=== PATIENT | male | born 1975 | race Caucasian/White ===

== ENCOUNTER 2019-12-18 10:12 | Emergency (ER) | payer SELFPAY ==
[~2019-12-18] VITALS: Ht 170.2 cm; Wt 81.0 kg
[2019-12-18 10:28] VITALS: BP 151/78
[2019-12-18] MEDS ORDERED: IOHEXOL 240 MG/ML 50ML VIAL. ONE (10:43)
[2019-12-18] MEDS ORDERED: ONDANSETRON PF 4 MG/2 ML VIAL. IVP ONE ×2 (10:45→12:15)
[2019-12-18] MEDS ORDERED: FAMOTIDINE 20 MG/2 ML VIAL IVP ONE (10:45)
[2019-12-18] MEDS ORDERED: IV NORMAL SALINE 1,000ML 1,000 ML IV ONE (10:45)
[2019-12-18] MEDS ORDERED: IOHEXOL 300 MG/ML 75 ML VIAL. IV ONE (11:00)
[2019-12-18 11:24] LABS: CALCIUM 9.6 mg/dL (8.5-10.1); CREATININE 1.1 mg/dL (0.7-1.3); GFR 73.4; POTASSIUM 3.8 mmol/L (3.5-5.1)
[2019-12-18 11:36] LABS: BASO # 0.1 x10^3/uL (0.0-0.2); BASO % 1 % (0-3); EOS % 1 % (0-3); HEMATOCRIT 48.3 % (39.0-53.0); HEMOGLOBIN 16.7 g/dL (13.0-17.5); LYMPH % 23 % (24-48); MEAN CORPUSCULAR HEMOGLOBIN 29 pg (25-35); MEAN CORPUSCULAR HGB CONC 35 g/dL (31-37); MEAN CORPUSCULAR VOLUME 85 fL (79-100); MONO # 0.6 x10^3/uL (0.0-1.1); MONO % 7 % (0-9); NEUT # 5.9 x10^3uL (1.8-7.7); NEUT % 69 % (31-73); PLATELET COUNT 329 x10^3/uL (140-400); RED BLOOD COUNT 5.69 x10^6/uL (4.30-5.70); RED CELL DISTRIBUTION WIDTH 13.1 % (11.5-14.5); WHITE BLOOD COUNT 8.6 x10^3/uL (4.0-11.0)
[2019-12-18 11:42] LABS: ALBUMIN 4.4 g/dL (3.4-5.0); ALBUMIN/GLOBULIN RATIO 1.4 (1.0-1.7); MAGNESIUM 2.1 mg/dL (1.8-2.4); TOTAL BILIRUBIN 0.9 mg/dL (0.2-1.0); TOTAL PROTEIN 7.5 g/dL (6.4-8.2)
--- NOTE | 2019-12-18 11:50 | PHYS DOC ---
Past History Past Medical History: Diverticulitis, High Cholesterol Additional Past Medical Histor: Viral meningitis Additional Past Surgical Histo: Dental extractions 12/03/2019 Smoking: Cigarettes Alcohol Use: None Drug Use: Marijuana General Adult EDM: Chief Complaint: NAUSEA/VOMITING/DIARRHEA HPI: HPI: 44 year old male presents with prolonged symptoms. Patient reports has had LLQ abdominal pain, nausea, vomiting, constipation, neck and low back pain, headache, dizziness, and generalized malaise for last few weeks. Reports symptoms seemed to start after patient had 2 teeth extracted on 12/03/2019. Patient has been seen multiple times by his PCP with testing performed. Patient reports he has had a CXR, sinus XR, blood work, and even blood cultures which have not resulted any known abnormality. Patient also reports he was tested for COVID-19 and received a "negative" result. Patient was recently started 2 days ago on Flagyl and Cipro for presumed diverticulitis. Patient reports he has had prior history. Denies imaging of abdomen. Patient also reports history of prior "meningitis" for which he was hospitalized. Denies trauma. Denies known sick contacts. Reports symptoms have not improved and therefore he presents to ED for further evaluation and treatment. Review of Systems: Review of Systems: Constitutional: Denies fever or chills; reports malaise Eyes: Denies change in visual acuity, redness, or eye pain HENT: Denies nasal congestion or sore throat Respiratory: Denies cough or shortness of breath Cardiovascular: Denies chest pain or palpitations GI: Reports abdominal pain, nausea, vomiting, and constipation : Denies dysuria or hematuria Musculoskeletal: Reports neck pain and low back pain Integument: Denies rash or skin lesions Neurologic: Reports headache; denies focal weakness or sensory changes Complete systems were reviewed and found to be within normal limits, except as documented in this note. Current Medications: Current Meds: Current Medications Medications (Trade) Dose Ordered Sig/David Start Time Stop Time Status Last Admin Dose Admin Famotidine (Pepcid Vial) 20 mg 1X ONCE 12/18/19 10:45 12/18/19 10:47 DC 12/18/19 10:57 20 MG Fentanyl Citrate (Fentanyl 2ml Vial) 50 mcg 1X ONCE 12/18/19 10:45 12/18/19 10:47 DC 12/18/19 10:57 50 MCG Iohexol (Omnipaque 240 Mg/ml) 50 ml STK-MED ONCE 12/18/19 10:43 12/18/19 10:44 DC Iohexol (Omnipaque 300 Mg/ml) 75 ml 1X ONCE 12/18/19 11:00 12/18/19 11:01 DC Ondansetron HCl (Zofran) 4 mg 1X ONCE 12/18/19 10:45 12/18/19 10:47 DC 12/18/19 10:57 4 MG Sodium Chloride 1,000 ml @ 1,000 mls/hr 1X ONCE 12/18/19 10:45 12/18/19 11:44 DC 12/18/19 10:56 1,000 MLS/HR Allergies: Allergies: Allergies Coded Allergies Type Severity Reaction Last Updated Verified No Known Drug Allergies 12/18/19 No Physical Exam: PE: Constitutional: Well developed, well nourished, uncomfortable, non-toxic appearance HENT: Normocephalic, atraumatic Eyes: EOMI, PERRL, conjunctiva normal, no discharge Neck: Normal range of motion, no tenderness, supple, no meningeal signs Lungs & Thorax: Equal chest rise and fall, no respiratory distress Abdomen: Soft, LLQ tenderness, mild distention, no guarding Skin: Warm, dry, no erythema, no rash Back: Low lumbar paraspinal tenderness, no CVA tenderness Extremities: No tenderness, ROM intact, no edema Neurologic: Alert and oriented X 3, no motor or sensory deficit noted Psychologic: Affect normal, judgement normal Current Patient Data: Labs: Laboratory Tests Test 12/18/19 10:50 White Blood Count 8.6 x10^3/uL (4.0-11.0) Red Blood Count 5.69 x10^6/uL (4.30-5.70) Hemoglobin 16.7 g/dL (13.0-17.5) Hematocrit 48.3 % (39.0-53.0) Mean Corpuscular Volume 85 fL (79-100) Mean Corpuscular Hemoglobin 29 pg (25-35) Mean Corpuscular Hemoglobin Concent 35 g/dL (31-37) Red Cell Distribution Width 13.1 % (11.5-14.5) Platelet Count 329 x10^3/uL (140-400) Neutrophils (%) (Auto) 69 % (31-73) Lymphocytes (%) (Auto) 23 % (24-48) L Monocytes (%) (Auto) 7 % (0-9) Eosinophils (%) (Auto) 1 % (0-3) Basophils (%) (Auto) 1 % (0-3) Neutrophils # (Auto) 5.9 x10^3uL (1.8-7.7) Lymphocytes # (Auto) 2.0 x10^3/uL (1.0-4.8) Monocytes # (Auto) 0.6 x10^3/uL (0.0-1.1) Eosinophils # (Auto) 0.0 x10^3/uL (0.0-0.7) Basophils # (Auto) 0.1 x10^3/uL (0.0-0.2) Sodium Level 139 mmol/L (136-145) Potassium Level 3.8 mmol/L (3.5-5.1) Chloride Level 98 mmol/L (98-107) Carbon Dioxide Level 31 mmol/L (21-32) Anion Gap 10 (6-14) Blood Urea Nitrogen 16 mg/dL (8-26) Creatinine 1.1 mg/dL (0.7-1.3) Estimated GFR (Cockcroft-Gault) 73.4 BUN/Creatinine Ratio 15 (6-20) Glucose Level 105 mg/dL (70-99) H Lactic Acid Level 1.2 mmol/L (0.4-2.0) Calcium Level 9.6 mg/dL (8.5-10.1) Magnesium Level 2.1 mg/dL (1.8-2.4) Total Bilirubin 0.9 mg/dL (0.2-1.0) Aspartate Amino Transferase (AST) 21 U/L (15-37) Alanine Aminotransferase (ALT) 40 U/L (16-63) Alkaline Phosphatase 66 U/L (46-116) Creatine Kinase 71 U/L (39-308) Creatine Kinase MB (Mass) 0.5 ng/mL (0.0-3.6) Creatine Kinase MB Relative Index 0.7 % (0-4) Troponin I Quantitative < 0.017 ng/mL (0-0.055) Total Protein 7.5 g/dL (6.4-8.2) Albumin 4.4 g/dL (3.4-5.0) Albumin/Globulin Ratio 1.4 (1.0-1.7) Vital Signs: Vital Signs Date Time Temp Pulse Resp B/P (MAP) Pulse Ox O2 Delivery O2 Flow Rate FiO2 12/18/19 10:57 16 99 12/18/19 10:28 97.0 116 151/78 (102) Room Air EKG: EKG: @1044 NSR at 91bpm, NO ST elevation, QRS 88ms, QT/QTc 362/447ms, baseline artifact in III Radiology/Procedures: Radiology/Procedures: PROCEDURE: CT ABD PELV W/ORAL&IV CONTRAST PQRS Compliance Statement: One or more of the following individualized dose reduction techniques were utilized for this examination: 1. Automated exposure control 2. Adjustment of the mA and/or kV according to patient size 3. Use of iterative reconstruction technique CT ABD PELV W/ORAL IV CONTRAST Clinical Indication: LLQ pain. Comparison: None. Technique: Helical CT imaging of the abdomen and pelvis is performed after 75 cc of Omnipaque 300 IV contrast. Oral contrast also administered. Findings: The lung bases are clear. Cardiac size normal. Small cyst segment IVb of the liver. Liver otherwise homogeneous. Gallbladder, spleen, pancreas, adrenal glands, abdominal aorta, and kidneys are normal. Stomach unremarkable. There is small bowel malrotation. The small bowel is positioned in the right abdomen and colon is mostly position in the left abdomen. The cecum is seen in the midline at the level of the kidneys. There is no small bowel obstruction. Small bowel is mostly decompressed. Tiny fat-containing umbilical hernia. The appendix is normal. There is no abdominal adenopathy or free fluid. No colon wall thickening is seen. Urinary bladder is normal. Prostate and seminal vesicles are normal. No pelvic free fluid. There is bilateral L5 spondylolysis. There is mild grade 1 anterolisthesis of L5 on S1. Mild grade 1 retrolisthesis of L4 on L5. IMPRESSION: 1. No acute abdominal or pelvic abnormality. 2. Incidental congenital small bowel malrotation. Electronically signed by: Uriah Zuniga MD (12/18/2019 12:22 PM) [id number] Course & Med Decision Making: Course & Med Decision Making Pertinent Labs and Imaging studies reviewed. (See chart for details) Patient presents with prolonged illness including LLQ abdominal pain, neck and back pain, N/V, constipation, VALADEZ, and dizziness. Patient has been seen and worked up by PCP without significant findings. Reports has previous CXR, sinus XR, blood cultures, and COVID testing by PCP. No significant results reported. PCP started patient on Flagyl and Cipro with concern for possible diverticulitis given history. Patient with continued LLQ pain. Pain and nausea addressed. IVF hydration given. Labs obtained and posted to chart. WBC and lactic acid WNL. UA without signs of infection. CT abd/pelvis with oral and IV contrast without acute process. Unclear etiology. Possible viral syndrome. Patient stable for discharge home with outpatient follow-up with PCP/GI. GI referral provided. Discussed findings and plan with patient, who acknowledges understanding and agreement. Feroz Disclaimer: [employer]IQ Disclaimer: This electronic medical record was generated, in whole or in part, using a voice recognition dictation system. Departure Departure: Impression: Primary Impression: Abdominal pain Qualified Codes: R10.32 - Left lower quadrant pain Additional Impression: Intractable nausea and vomiting Disposition: HOME/RESIDENCE PRIOR TO ADM Condition: STABLE Referrals: ALYCIA DUPONT MD (PCP) FRANDY JAVIER MD Patient Instructions: Abdominal Pain (Nonspecific), Clear Liquid Diet, [id number], Nausea and Vomiting, [id number] Additional Instructions: It does not appear you currently have diverticulitis. You can discontinue previously prescribed antibiotics. Scripts Hyoscyamine Sulfate (LEVSIN-SL) 0.125 Mg Tab.subl 0.125 MG SL Q4-6HRS PRN for PAIN, #20 TAB Prov: LATHA HERNANDEZ DO 12/18/19 Promethazine Hcl (PROMETHAZINE HCL) 25 Mg Supp.rect 25 MG RC Q6HRS PRN for NAUSEA, #10 SUPP.RECT Prov: LATHA HERNANDEZ DO 12/18/19 Ondansetron (ONDANSETRON ODT) 4 Mg Tab.rapdis 1 TAB PO PRN Q6-8HRS PRN for NAUSEA, #16 TAB Prov: LATHA HERNANDEZ DO 12/18/19 Sennosides/Docusate Sodium (Colace 2-in-1 Tablet) 1 Each Tablet 1 TAB PO QHS for constipation, #20 TAB 0 Refills Prov: LATHA HERNANDEZ DO 12/18/19 Famotidine (PEPCID) 20 Mg Tablet 1 TAB PO BID for gastritis, #10 TAB Prov: LATHA HERNANDEZ DO 12/18/19 Justification of Admission: Justification of Admission: Justification of Admission Dx: N/A LATHA HERNANDEZ DO Dec 18, 2019 11:50
[2019-12-18] MEDS ORDERED: MORPHINE SULFATE 4 MG/ML DISP.SYRIN. IV ONE (12:00)
--- NOTE | 2019-12-18 12:24 | RAD ---
PQRS Compliance Statement: One or more of the following individualized dose reduction techniques were utilized for this examination: 1. Automated exposure control 2. Adjustment of the mA and/or kV according to patient size 3. Use of iterative reconstruction technique CT ABD PELV W/ORAL IV CONTRAST Clinical Indication: LLQ pain. Comparison: None. Technique: Helical CT imaging of the abdomen and pelvis is performed after 75 cc of Omnipaque 300 IV contrast. Oral contrast also administered. Findings: The lung bases are clear. Cardiac size normal. Small cyst segment IVb of the liver. Liver otherwise homogeneous. Gallbladder, spleen, pancreas, adrenal glands, abdominal aorta, and kidneys are normal. Stomach unremarkable. There is small bowel malrotation. The small bowel is positioned in the right abdomen and colon is mostly position in the left abdomen. The cecum is seen in the midline at the level of the kidneys. There is no small bowel obstruction. Small bowel is mostly decompressed. Tiny fat-containing umbilical hernia. The appendix is normal. There is no abdominal adenopathy or free fluid. No colon wall thickening is seen. Urinary bladder is normal. Prostate and seminal vesicles are normal. No pelvic free fluid. There is bilateral L5 spondylolysis. There is mild grade 1 anterolisthesis of L5 on S1. Mild grade 1 retrolisthesis of L4 on L5. IMPRESSION: 1. No acute abdominal or pelvic abnormality. 2. Incidental congenital small bowel malrotation. Electronically signed by: Uriah Zuniga MD (12/18/2019 12:22 PM) [id number]
[2019-12-18 12:25] LABS: BACTERIA,URINE 0 /HPF (0-FEW); BILIRUBIN,URINE NEG (NEG); CLARITY,URINE CLEAR; COLOR,URINE YELLOW; GLUCOSE,URINE NEG (NEG); NITRITE,URINE NEG (NEG); RBC,URINE 0 /HPF (0-2); SQUAMOUS EPITHELIAL CELL,UR OCC /LPF; UROBILINOGEN,URINE 0.2 mg/dL (0.2 mg/dL); WBC,URINE 0 /HPF (0-4)
[2019-12-18] MEDS ORDERED: IV NORMAL SALINE 500ML 500 ML IV ONE (12:45)
[2019-12-18] MEDS ORDERED: METOCLOPRAMIDE HCL 10 MG/2 ML VIAL. IVP ONE (12:45)
[2019-12-18] MEDS ORDERED: KETOROLAC 15 MG/ML VIAL. IVP ONE (12:45)
[2019-12-18] MEDS ORDERED: diphenhydrAMINE 50 MG/ML VIAL IVP ONE (12:45)
[2019-12-18] MEDS ORDERED: SENN-121 PO (12:47)
[2019-12-18] MEDS ORDERED: PROM25SU33 RC (12:47)
[2019-12-18] MEDS ORDERED: HYOS0.1265 SL (12:47)
[2019-12-18] MEDS ORDERED: ONDA4TAB12 PO (12:47)
[2019-12-18] MEDS ORDERED: FAMO-63 PO (12:47)
--- NOTE | 2019-12-18 21:26 | EKG ---
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
== END 2019-12-18 13:28 | disposition home or self-care (01) ==
LOC: ER 10:12
DX: R10.32 Left lower quadrant pain (principal); R11.2 Nausea with vomiting, unspecified; M54.5 Low back pain; M54.2 Cervicalgia; R42 Dizziness and giddiness; R51 Headache; F17.210 Nicotine dependence, cigarettes, uncomplicated; E78.00 Pure hypercholesterolemia, unspecified
CPT/HCPCS: 36415; 74177; 80053; 81001; 82553; 83605; 83735; 84484; 85025; 85610; 85730; 93005; 96361; 96374; 96375; 96376; 99285; J1200; J1885; J2270; J2405; J2765; J3010; J3490; J7030; J7040; Q9967